=== PATIENT | female | born 1990 | race Caucasian/White ===

== ENCOUNTER 2017-05-08 22:44 | Emergency (ER) | payer BC, OTHER ==
[~2017-05-08] VITALS: Ht 160 cm; Wt 72.6 kg
[2017-05-08] MEDS ORDERED: ZYRTEC10 M5 PO (22:51)
[2017-05-08] MEDS ORDERED: FLONASE 0.05%50 MCG NASAL (22:51)
[2017-05-08] MEDS ORDERED: LOESTRIN1 EACH PO (22:51)
[2017-05-08] MEDS ORDERED: AUGMENTIN XR 11 EACH PO (22:52)
[2017-05-08] MEDS ORDERED: ZOFRAN ODT8 MG PO (23:24)
[2017-05-08 23:49] LABS: ABSOLUTE NEUTROPHILS 6.7 thou/uL (1.4-8.2); BASOPHILS 0.6 % (0.0-2.0); EOSINOPHILS 1.2 % (0.0-3.0); HEMATOCRIT 38.7 % (37.0-47.0); HEMOGLOBIN 12.9 gm/dL (12.0-15.0); LYMPHOCYTES 13.2 % (24.0-44.0); MCH 29.1 pg (26.0-34.0); MCHC 33.4 g/dL (28.0-37.0); MCV 87.2 fL (80.0-100.0); MONOCYTES 6.6 % (1.0-8.0); PLATELET COUNT 258 thou/uL (150-400); POLYS 78.4 % (36.0-66.0); RBC 4.44 mil/uL (4.20-5.00); RDW 13.4 % (10.5-14.5); WBC 8.6 thou/uL (4.0-11.0)
[2017-05-08 23:54] LABS: URINE BILIRUBIN NEGATIVE (Negative); URINE BLOOD TRACE (Negative); URINE COLOR YELLOW; URINE GLUCOSE-RANDOM* NEGATIVE (Negative); URINE KETONES NEGATIVE (Negative); URINE LEUKOCYTES-REFLEX NEGATIVE (Negative); URINE PROTEIN (DIPSTICK) NEGATIVE (Negative); URINE SPECIFIC GRAVITY <= 1.005 (1.003-1.035); URINE UROBILINOGEN 0.2 E.U./dl (0.2-1.0)
[2017-05-08 23:55] LABS: MANUAL DIFF NO
[2017-05-09 00:05] LABS: CALCIUM 9.5 mg/dL (8.5-10.1); CREATININE 0.9 mg/dL (0.6-1.0); POTASSIUM 3.4 mmol/L (3.5-5.1)
[2017-05-09 00:10] LABS: ALBUMIN 3.8 g/dL (3.4-5.0); TOTAL BILIRUBIN 0.2 mg/dL (<0.1-1.0); TOTAL PROTEIN 8.3 g/dL (6.4-8.2)
[2017-05-09 00:50] VITALS: BP 107/65
== END 2017-05-09 00:52 | disposition home or self-care (01) ==
LOC: ER 22:44
PROVIDERS: Emergency Medicine
DX: R11.2 Nausea with vomiting, unspecified (principal); J30.9 Allergic rhinitis, unspecified; H65.92 Unspecified nonsuppurative otitis media, left ear; F10.99 Alcohol use, unspecified with unspecified alcohol-induced disorder